=== PATIENT | male | born 1960 | race Two or more races ===

== ENCOUNTER 2023-12-12 11:14 | Emergency (ER) | payer OTHER ==
[~2023-12-12] VITALS: Ht 177.8 cm; Wt 67.0 kg
[2023-12-12 11:23] VITALS: O2SAT 100
[2023-12-12] MEDS: SODIUM CHLORIDE 0.9% 1,000 ML IV ONE (12:08)
[2023-12-12] MEDS: IOHEXOL-350 100 ML BOTTLE ONE (12:14)
[2023-12-12 12:34] LABS: BASOPHILS % 0.1 % (0.0-2.0); EOSINOPHILS % 0.1 % (0.0-5.0); HEMATOCRIT. 33.3 % (42.0-52.0); HEMOGLOBIN. 11.4 g/dL (14.0-18.0); MEAN CORPUSCULAR HEMOGLOBIN 40.8 pg (28.0-32.0); MEAN CORPUSCULAR HGB CONC 34.2 g/dL (31.0-37.0); MEAN CORPUSCULAR VOLUME 119.6 fL (80.0-94.0); MEAN PLATELET VOLUME 8.6 fl (7.4-10.4); MONOCYTES % 8.2 % (2.0-8.0); NEUTROPHILS % 77.6 % (40.0-76.0); PLATELET 93 x1000/uL (130-400); RED BLOOD CELL COUNT 2.79 mill/uL (4.7-6.1); RED CELL DISTRIBUTION WIDTH 15.6 % (11.6-14.6); WHITE BLOOD COUNT 2.8 x1000/uL (4.5-11.0)
[2023-12-12 12:35] LABS: ADD RBC MORPHOLOGY YES; DIFFERENTIAL COMMENT 1
[2023-12-12 12:44] LABS: CARBON DIOXIDE 27 mEq/L (21-32); CHLORIDE 97 mEq/L (98-107); POTASSIUM 3.5 mEq/L (3.5-5.1); SODIUM 134 mEq/L (136-145)
[2023-12-12 12:45] LABS: CALCIUM 8.5 mg/dL (8.7-10.4)
[2023-12-12 12:49] LABS: CREATININE 0.7 mg/dL (0.6-1.3); GLUCOSE 196 mg/dL (70-105)
[2023-12-12 12:50] LABS: UREA NITROGEN BLOOD 10 mg/dL (9-23)
[2023-12-12 12:51] LABS: ALANINE AMINOTRANSFERASE 33 IU/L (10-49); ALBUMIN 3.4 g/dL (3.2-4.8); ASPARTATE AMINOTRANSFERASE 21 IU/L (<34); ETHANOL BLOOD < 10 mg/dL (<10); TROPONIN I HIGH SENSITIVITY 13 ng/L (3.0-53)
[2023-12-12 12:52] LABS: BILIRUBIN DIRECT 0.4 mg/dL (<=3.0); BILIRUBIN TOTAL 1.1 mg/dL (0.1-1.0); PROTEIN TOTAL 5.3 g/dL (6.0-8.3)
[2023-12-12 13:05] LABS: PARTIAL THROMBOPLASTIN TIME 21.4 sec (23.4-31.0); PROTHROMBIN TIME 11.4 sec (9.6-11.0)
[2023-12-12] MEDS: ASPIRIN 81MG TABLET PO ONE (14:05)
[2023-12-12 15:15] LABS: ANISOCYTOSIS 1+; PLATELET ESTIMATE DECREASED
[2023-12-12 17:11] VITALS: BP 138/87; PULSE 78; RESP 14; TEMP 37.50300; O2SAT 98
== END 2023-12-12 17:23 | disposition short-term general hospital (02) ==
LOC: ER 11:14 → EDBEDREQ 12:30 → CANBEDREQ 13:50 → ER 17:23
DX: I63.9 Cerebral infarction, unspecified (principal); I10 Essential (primary) hypertension; D64.9 Anemia, unspecified; I48.92 Unspecified atrial flutter; Z88.0 Allergy status to penicillin
CPT/HCPCS: 80076; 80048; 80320; 83880; 83690; 85025; 85610; 85730; 86850; 86900; 86901; 84484; 36415; 71045; 70496; 70498; 70450; 93005; 96360; 99291; 87426; Q9967; J7030; G0480